=== PATIENT | female | born 1975 | race Hispanic/Latino ===

== ENCOUNTER 2018-05-25 08:30 | Emergency (ER) | payer OTHER, SELFPAY ==
[2018-05-25 08:53] LABS: APPEARANCE,URINE Cloudy (CLEAR); BILIRUBIN,URINE Negative (NEGATIVE); COLOR,URINE Yellow (YELLOW); GLUCOSE, URINE (UA) Negative (NEGATIVE); KETONES,URINE Negative (NEGATIVE); LEUKOCYTE ESTERASE ,URINE Large (NEGATIVE); NITRATE,URINE Positive (NEGATIVE); OCCULT BLOOD,URINE Small (NEGATIVE); PH,URINE 5.5 (5.0-8.0); PROTEIN,URINE Negative (NEGATIVE)
[2018-05-25 08:55] LABS: HCG,QUAL RESULT NEGATIVE (NEGATIVE)
[2018-05-25 09:07] LABS: BACTERIA,URINE Moderate /HPF (None Seen); MUCUS,URINE Few LPF (None Seen); RBC,URINE 0-1 /HPF (0-1); SQUAMOUS EPITHELIAL CELL,UR Few /HPF (0-2); WBC,URINE 26-50 /HPF (0-1)
[2018-05-25] MEDS ORDERED: LIDOCAINE HCL-MPF 1% 2ML VIAL ONE (09:18)
[2018-05-25] MEDS ORDERED: CEFTRIAXONE SODIUM 1 GM ONE (09:19)
[2018-05-25] MEDS ORDERED: PHENAZOPYRIDINE HCL 200 MG TABLET ONE (09:19)
== END 2018-05-25 09:42 | disposition home or self-care (01) ==
LOC: EDH 08:30
DX: N39.0 Urinary tract infection, site not specified (principal)
CPT/HCPCS: 81001; 81025; 96372; 99283; J0696; J3490

== ENCOUNTER 2019-01-02 07:35 | Emergency (ER) | payer OTHER ==
[2019-01-02 07:49] LABS: APPEARANCE,URINE CLOUDY (CLEAR); BILIRUBIN,URINE NEGATIVE (NEGATIVE); COLOR,URINE YELLOW (YELLOW); GLUCOSE, URINE (UA) NEGATIVE (NEGATIVE); KETONES,URINE NEGATIVE (NEGATIVE); LEUKOCYTE ESTERASE ,URINE LARGE (NEGATIVE); NITRATE,URINE POSITIVE (NEGATIVE); OCCULT BLOOD,URINE SMALL (NEGATIVE); PH,URINE 5.5 (5.0-8.0); PROTEIN,URINE NEGATIVE (NEGATIVE); UROBILINOGEN,URINE 0.2 mg/dL (0.2-1.0)
[2019-01-02 07:59] LABS: BACTERIA,URINE Moderate /HPF (None Seen); RBC,URINE 0-1 /HPF (0-1); SQUAMOUS EPITHELIAL CELL,UR Rare /HPF (0-2); WBC,URINE >100 /HPF (0-1)
[2019-01-02 08:00] LABS: HCG,QUAL RESULT NEGATIVE (NEGATIVE)
[2019-01-02] MEDS ORDERED: LIDOCAINE HCL-MPF 1% 2ML VIAL ONE (08:21)
[2019-01-02] MEDS ORDERED: CEFTRIAXONE SODIUM 1 GM ONE (08:22)
[2019-01-02] MEDS ORDERED: PHENAZOPYRIDINE HCL 200 MG TABLET ONE (08:22)
== END 2019-01-02 08:43 | disposition home or self-care (01) ==
LOC: EDH 07:35
DX: N30.01 Acute cystitis with hematuria (principal); Z88.1 Allergy status to other antibiotic agents
CPT/HCPCS: 81001; 81025; 96372; 99284; J0696; J3490

== ENCOUNTER 2021-09-29 21:40 | Emergency (ER) | payer OTHER ==
[~2021-09-29] VITALS: Ht 149.9 cm; Wt 64.9 kg
[2021-09-29] MEDS ORDERED: 0.9%NACL 1000ML 1,000 ML IV ONE (22:30)
[2021-09-29 22:32] LABS: BASOPHILS % (AUTO) 0.1 % (0.0-5.0); HEMATOCRIT 38.4 % (36-48); LYMPHOCYTES % (AUTO) 2.1 % (21.0-51.0); MEAN CORPUSCULAR HEMOGLOBIN 30.2 pg (27.0-33.0); MEAN CORPUSCULAR HGB CONC 33.6 g/dL (32.0-36.0); MEAN CORPUSCULAR VOLUME 89.9 fL (79-99); MONOCYTES % (AUTO) 1.9 % (3.0-13.0); NEUTROPHILS % (AUTO) 95.6 % (40.0-77.0); PLATELET COUNT (AUTO) 304 K/uL (130-400); RED BLOOD CELL COUNT(AUTO) 4.27 MIL/uL (4.00-5.50); RED CELL DISTRIBUTION WIDTH 13.2 % (11.0-15.5); WHITE BLOOD COUNT (AUTO) 10.3 K/uL (4.8-10.8)
[2021-09-29 22:41] LABS: CREATININE 0.6 mg/dL (0.5-1.5); POTASSIUM 3.4 mmol/L (3.5-5.1)
[2021-09-29] MEDS ORDERED: DICYCLOMINE 20MG (10MG/ML) AMP IM STA (22:41)
[2021-09-29 22:46] LABS: ALBUMIN 3.7 g/dL (3.5-5.0); BILIRUBIN,TOTAL 0.7 mg/dL (0.2-1.0)
[2021-09-29 22:57] LABS: HCG,QUAL RESULT NEGATIVE (NEGATIVE)
[2021-09-29] MEDS ORDERED: ONDANSETRON 4MG INJ IVP ONE (23:00)
[2021-09-29] MEDS ORDERED: FAMOTIDINE 20MG VIAL IV ONE (23:00)
[2021-09-29 23:01] LABS: APPEARANCE,URINE CLEAR (CLEAR); BILIRUBIN,URINE NEGATIVE (NEGATIVE); COLOR,URINE YELLOW (YELLOW); GLUCOSE, URINE (UA) NEGATIVE (NEGATIVE); KETONES,URINE 15 mg/dL (NEGATIVE); LEUKOCYTE ESTERASE ,URINE NEGATIVE (NEGATIVE); NITRATE,URINE NEGATIVE (NEGATIVE); OCCULT BLOOD,URINE MODERATE (NEGATIVE); PH,URINE 5.5 (5.0-8.0); PROTEIN,URINE 30 mg/dL (NEGATIVE); UROBILINOGEN,URINE 0.2 mg/dL (0.2-1.0)
[2021-09-29 23:12] LABS: BACTERIA,URINE Few /HPF (None Seen); MUCUS,URINE Few LPF (None Seen)
[2021-09-29 23:27] VITALS: BP 106/65
[2021-09-29] MEDS ORDERED: FAMO-136 PO (23:28)
[2021-09-29] MEDS ORDERED: DICY20TA2 PO (23:28)
[2021-09-29] MEDS ORDERED: ONDA4TAB10 PO (23:28)
[2021-09-29] MEDS ORDERED: L.AC1CAP6 PO (23:28)
[2021-09-29] MEDS ORDERED: POTASSIUM BICARB/CIT AC 25 MEQ TABLET.EFF PO ONE (23:30)
== END 2021-09-29 23:45 | disposition home or self-care (01) ==
LOC: EDH 21:40
DX: K52.9 Noninfective gastroenteritis and colitis, unspecified (principal); Z88.1 Allergy status to other antibiotic agents; Z79.899 Other long term (current) drug therapy
CPT/HCPCS: 36415; 80053; 81001; 81025; 83690; 85025; 87804 ×2; 96361; 96372; 96374; 96375; 99284; J0500; J2405; J3490; J7030